=== PATIENT | male | born 1960 | race Caucasian/White ===

== ENCOUNTER 2018-03-08 21:34 | Emergency (ER) | payer MEDICARE ==
[~2018-03-08] VITALS: Ht 175.3 cm; Wt 63.5 kg
[2018-03-08 22:00] VITALS: BP 137/89
[2018-03-08 22:02] LABS: BASOPHIL # 0.1 10^3/uL (0.0-0.1); BASOPHIL % 2.7 % (0.0-0.2); EOSINOPHIL # 0.1 10^3/uL (0.0-0.2); EOSINOPHIL % 2.5 % (0.0-5.0); LYMPHOCYTES % 20.1 % (24.0-44.0); MEAN CELL HGB 32.6 pg (26-34); MEAN CELL HGB CONCENTRATION 33.8 g/dL (33-37); MEAN CORP VOLUME 96.3 fL (78-100); MEAN PLATELET VOLUME 10.5 fL (7.8-11.0); MONOCYTES # 0.6 10^3/uL (0.3-0.8); MONOCYTES % 11.9 % (5.0-12.0); NEUTROPHIL # 3.2 10^3/uL (1.8-7.7); NEUTROPHILS % 62.8 % (41.0-85.0); RED CELL DISTRIBUTION WIDTH 14.1 % (11.5-14.5); WHITE BLOOD CELL 5.1 10^3/uL (4.5-11.0)
[2018-03-08 22:27] LABS: ALANINE AMINOTRANSFERASE(ML) 98 U/L (12-78); ALKALINE PHOSPHATASE 80 U/L (50-136); ASPARTATE AMINO TRANSFERASE 96 U/L (0-35); CALCIUM 8.5 mg/dL (8.4-10.5); CARBON DIOXIDE 21.8 mmol/L (20.0-32); GLUCOSE 80 mg/dL (70-110)
--- NOTE | 2018-03-08 22:27 | DIREP ---
PROCEDURE:CHEST 1 VIEW COMPARISON:None. INDICATIONS:CHEST PAIN FINDINGS: LUNGS/PLEURA:There is pulmonary hyperinflation consistent with underlying COPD. No focal consolidation. No effusions. VASCULATURE:Normal. Unremarkable pulmonary vasculature. CARDIAC:Normal. No cardiac silhouette abnormality or cardiomegaly. Left pacemaker. MEDIASTINUM:Normal. No visible mass or adenopathy. BONES:Normal. No fracture or visible bony lesion. OTHER:EKG leads overlie the chest. CONCLUSION:COPD. No acute cardiopulmonary abnormalities. Dictated by: Arron Whittaker M.D. on 03/08/2018 at 10:25 PM
[2018-03-08 22:30] VITALS: BP 128/80
--- NOTE | 2018-03-08 22:45 | ER.PDOC ---
General Chief Complaint: Chest Pain-Cardiac Nature Stated Complaint: SOB, CHEST PAIN TRAVEL OUT OF US: No Time seen by MD: 22:43 Source: patient Exam Limitations: no limitations History of Present Illness Initial Comments Defibrillator firing on and off since yesterday. Initially had chest pain but non now. Severity: moderate Associated Symptoms: chest pain, shortness of breath Allergies: Coded Allergies: No Known Allergies (Unverified , 03/08/18) Past Medical History Medical History: cardiac problems, congestive heart failure, COPD, hypertension Surgical History: pacemaker/ICD Social History Smoking: cigarettes, greater than 1 pack/day Alcohol Use: occassionally Drug Use: marijuana Review of Systems Constitutional: no symptoms reported EENTM: no symptoms reported Respiratory: see HPI Cardiovascular: see HPI Gastrointestinal: no symptoms reported Genitourinary: no symptoms reported Musculoskeletal: no symptoms reported All Other Systems: Reviewed and Negative Physical Exam General Appearance: No Apparent Distress, WD/WN EENT: eyes nml inspection Neck: Non-Tender, Full Range of Motion, Supple, Normal Inspection Respiratory: chest non-tender, lungs clear, normal breath sounds, no respiratory distress CVS: reg rate & rhythm, no murmur, no gallop, pulses nml, nml capillary refill Gastrointestinal: Normal Bowel Sounds, No Organomegaly, No Pulsatile Mass, Non Tender Back: Normal Inspection Extremities: Normal Range of Motion Neurologic/Psychiatric: mortgage loan coordinator II-XII NML as Tested Skin: Normal Color Results/Orders Results/Orders Laboratory Tests Test 03/08/18 21:50 White Blood Count 5.1 10^3/uL (4.5-11.0) Red Blood Count 4.91 10^6/uL (4.50-5.90) Hemoglobin 16.0 g/dL (13.9-16.3) Hematocrit 47.3 % (37.0-53.0) Mean Corpuscular Volume 96.3 fL (78-100) Mean Corpuscular Hemoglobin 32.6 pg (26-34) Mean Corpuscular Hemoglobin Concent 33.8 g/dL (33-37) Red Cell Distribution Width 14.1 % (11.5-14.5) Platelet Count 192 10^3/uL (150-400) Mean Platelet Volume 10.5 fL (7.8-11.0) Neutrophils (%) (Auto) 62.8 % (41.0-85.0) Lymphocytes (%) (Auto) 20.1 % (24.0-44.0) Monocytes (%) (Auto) 11.9 % (5.0-12.0) Neutrophils # (Auto) 3.2 10^3/uL (1.8-7.7) Lymphocytes # (Auto) 1.0 10^3/uL (1.0-4.8) Monocytes # (Auto) 0.6 10^3/uL (0.3-0.8) Absolute Immature Granulocyte (auto 0 10^3 u/L (0-2) Eosinophils % 2.5 % (0.0-5.0) Basophils % 2.7 % (0.0-0.2) Basophils # 0.1 10^3/uL (0.0-0.1) Eosinophil Count 0.1 10^3/uL (0.0-0.2) Prothrombin Time 9.5 SEC (9.8-11.9) Prothrombin Time INR (Non-Therap) 1.0 Activated Partial Thromboplast Time 25.2 SEC (24.67-30.72) D-Dimer 2.31 mg/L (0.19-0.49) Sodium Level 138 mmol/L (132-145) Potassium Level 3.9 mmol/L (3.6-5.2) Chloride Level 101.0 mmol/L (96-109) Carbon Dioxide Level 21.8 mmol/L (20.0-32) Anion Gap 19.1 Blood Urea Nitrogen 12 mg/dL (7-18) Creatinine 0.87 mg/dL (0.59-1.40) Estimated GFR () 109.1 (>/=60) BUN/Creatinine Ratio 13.0 Glucose Level 80 mg/dL (70-110) Calcium Level 8.5 mg/dL (8.4-10.5) Total Bilirubin 0.9 mg/dL (0.2-1.0) Aspartate Amino Transf (AST/SGOT) 96 U/L (0-35) Alanine Aminotransferase (ALT/SGPT) 98 U/L (12-78) Alkaline Phosphatase 80 U/L (50-136) Total Creatine Kinase 41 U/L (39-308) Creatine Kinase MB < 0.5 ng/mL (0.5-3.6) Troponin I < 0.02 ng/mL (0.00-0.05) Pro-B-Type Natriuretic Peptide 128 pg/mL (0-125) Total Protein 7.0 g/dL (6.4-8.2) Albumin 3.6 g/dL (3.4-5.0) Globulin 3.4 Percent Immature Gran (Cell Imm) 0.00 % (0.00-0.50) Progress Progress Patient is being transferred to [facility] ED because Dr. Thomas is his Rigger Supervisor who put the Pacemaker. I also spoke to Dr. Sandoval. EKG/XRAY/CT/US XRAY: chest (Nothing acute) Departure Time of Disposition: 23:59 Disposition: 02 XFER SHT-TRM HOSP Impression: Primary Impression: Disorder of defibrillator function Qualified Codes: T82.198A - Other mechanical complication of other cardiac electronic device, initial encounter Condition: Stable Comments Transfer to [facility] ED for Dr. Olmedo Duration or Time Spent with Pa: 60 mins KELSEY RAPHAEL MD March 08, 2018 22:45
[2018-03-08 23:00] VITALS: BP 133/85
[2018-03-08 23:30] VITALS: BP 139/108
[2018-03-08] MEDS ORDERED: ASPIRIN ONE (23:32)
--- NOTE | 2018-03-08 23:37 | NUR ---
Transfer Request to Transfer initiated
[2018-03-08] MEDS ORDERED: ASPIRIN PO STA (23:50)
--- NOTE | 2018-03-08 23:50 | NUR ---
Transfer Accepted [facility] accepted transfer to [facility]. Accepting Physician Dr. Olmedo. WOODROW Bauer.
[2018-03-09] VITALS: BP 126/54
[2018-03-09 00:44] VITALS: BP 115/76
--- NOTE | 2018-03-09 01:15 | NUR ---
Restroom Assisted patient to restroom to void. Patient unsteady on feet, transferred via wheelchair. Requests to go out to smoke, education provided regarding nonsmoking facility.
--- NOTE | 2018-03-09 01:42 | NUR ---
EMS Contacted EMS. Aware of pending transfer. Await availability of Ambulance.
[2018-03-09 01:56] VITALS: BP 161/91
[2018-03-09 02:35] VITALS: BP 132/91
--- NOTE | 2018-03-09 02:39 | NUR ---
Status Continues to rest. No signs of distress. Await arrival of ambulance to [facility].
--- NOTE | 2018-03-09 03:08 | NUR ---
Transfer Patient to [facility] via [facility]. Denies pain, alert, oriented. VSS. Report to [facility] and [facility].
[2018-03-09 03:11] VITALS: BP 148/83
--- NOTE | 2018-03-09 14:04 | PCM.EKG ---
[facility] Test Date: 2018-03-08 Test Time: 21:43:04 Pat Name: [place] ALBA Department: Patient ID: [facility]-[id number] Room: Gender: M Nuclear Medicine Officer: BRYN : 1960 Requested By: KELSEY RAPHAEL Order Number: [id number] Reading MD: Measurements Intervals [place] Rate: 97 P: 81 [place]: 184 QRS: -68 QRSD: 86 T: -7 QT: 354 QTc: 449 Interpretive Statements Normal sinus rhythm Right atrial enlargement Left axis deviation Anteroseptal infarct, age undetermined T wave abnormality, consider inferior ischemia Abnormal ECG No previous ECG available for comparison Please click the below link to view image of tracing.
== END 2018-03-09 03:08 | disposition short-term general hospital (02) ==
LOC: ER 21:34
DX: T82.198A Other mechanical complication of other cardiac electronic device, initial encounter (principal); R07.9 Chest pain, unspecified; R06.02 Shortness of breath; I11.0 Hypertensive heart disease with heart failure; I50.9 Heart failure, unspecified; J44.9 Chronic obstructive pulmonary disease, unspecified; F17.210 Nicotine dependence, cigarettes, uncomplicated; F12.10 Cannabis abuse, uncomplicated; Z95.0 Presence of cardiac pacemaker; Y71.2 Prosthetic and other implants, materials and accessory cardiovascular devices associated with adverse incidents
CPT/HCPCS: 36415; 71045; 80053; 82550; 82553; 83880; 84484; 85025; 85379; 85610; 85730; 93005; 99285